=== PATIENT | male | born 1960 | race Caucasian/White ===

== ENCOUNTER → 2021-12-14 | Outpatient (CLI) | payer OTHER | END | disposition home or self-care (01) | LOC: RADMN 14:50 | PROVIDERS: ATTEND Internal Medicine | DX: R90.82 White matter disease, unspecified (principal); G93.89 Other specified disorders of brain; I63.9 Cerebral infarction, unspecified; J33.8 Other polyp of sinus; R47.01 Aphasia | CPT/HCPCS: 70551 ==